=== PATIENT | male | born 1945 | race Caucasian/White ===

== ENCOUNTER 2016-12-01 08:34 | Outpatient (CLI) | payer OTHER ==
--- NOTE | 2016-12-01 10:08 | DIAGNOSTIC IMAGING REPORT ---
PROCEDURE: US ABDOMEN VASCULAR-AAA INDICATION: AORTIC ANEURYSM TECHNIQUE: Means scale, color Doppler and spectral ultrasound of the abdominal aorta. COMPARISON: CT IVP 12/29/2014. FINDINGS: Tortuous aorta with moderate atherosclerosis. Abdominal aortic maximal diameters: Proximal 3.0 cm, mid 3.1 cm and distal 4.6 cm (previously 3.6 cm). Right iliac artery measures 1.8 cm and left iliac artery 1.7 cm. IMPRESSION: 1. Progression of 4.6 cm distal abdominal aortic aneurysm (previously 3.6 cm.
== END 2016-12-01 23:00 ==
LOC: US SRH 08:34
DX: I71.4 Abdominal aortic aneurysm, without rupture (principal)